=== PATIENT | female | born 1950 | race Caucasian/White ===

== ENCOUNTER 2017-07-31 06:06 | Inpatient (IN) ==
[2017-07-31] MEDS ORDERED: Ringers Solution, Lactated 1,000 ML IVC SCH (06:30)
[2017-07-31] MEDS ORDERED: CeFAZolin Syr 3,000MG/30 ML 3,000 MG/30 ML SYRINGE IVPB ONE (06:30)
[2017-07-31] MEDS ORDERED: Albuterol 2.5 MG/3 ML NEBULIZER IH ONE (06:30)
--- NOTE | 2017-07-31 06:42 | Anesthesia Evaluation PreOp ---
Date of Encounter: 07/31/17 Time of Encounter: 06:40 - Past History Planned Operation: anterior cervical fusion/corpectomy Cardiac History: HTN Pulmonary History: Former smoker (Quit smoking in the '. Denies COPD, however uses routine inhalers for asthma.), Asthma COAL WASHER History: Other (cervical stenosis with pain on lateral rotation of head down left arm. 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.) Other Medical History: Other (Morbid obesity) Anesthesia History: No Prior Anesthetic Complications Alcohol Use: none Drug use: none Medications and Allergies Albuterol Sulfate [Proair HFA] 90 mcg IH Q6HR PRN 11/20/14 [History] Amitriptyline [Elavil] 25 mg PO HS 11/20/14 [History] Atenolol [Tenormin] 25 mg PO HS 11/20/14 [History] Cholecalciferol (Vitamin D3) [Vitamin D] 50,000 unit PO 3XW 11/20/14 [History] Diclofenac Sodium [Voltaren] 75 mg PO BID 11/20/14 [History] Fluticasone/Salmeterol [Advair Hfa 230-21 Mcg Inhaler] 2 puff PO BID 11/20/14 [ History] Gabapentin [Neurontin] 800 mg PO TID 11/20/14 [History] OxyCODONE/APAP 10325 [Percocet 10/325 MG] 1 each PO Q6HR PRN #26 tablet [Rx] Rivaroxaban [Xarelto] 10 mg PO DAILY #21 tablet 11/20/14 [Rx] Sertraline [Zoloft] 100 mg PO BID 11/20/14 [History] 3 Allergy/AdvReac Type Severity Reaction Status Date / Time Erythromycin Base AdvReac Rash Verified 07/27/17 14:47 [From Erythrocin] - Meds/Allergy Pre-op Review Medications Reviewed: Yes Allergies Reviewed: Yes Beta Blockers on Current Med List: Yes (2300 07/30 HR 66) Anesthesia Results - Imaging EKG: report reviewed (sinus rhythm) Additional studies: Cardiac echo- EF 76%, no ischemia Anesthesia Exam - HEENT Pupil (Motor): Pupils equal Mallampati: II Teeth: Missing Oral Opening: Greater than 3 - COAL WASHER LOC: Oriented COAL WASHER Motor: Normal LUE (sl. decrease in director mobile strength, increased pain with flexion of neck, lateral rotation), Deficit Face (slight left sided facial droop ) - Cardiac Rhythm: Regular Murmur: None - Pulmonary Breath Sounds: bilateral Clear Respiratory Effort: Symmetrical Anesthesia Assess/Plan ASA Score: 3 Modified Gloria Scale for Level of Consciousness: Cooperative, oriented, and tranquil Anesthetic Plan: General Monitoring Plan: Standard Monitors Recovery Plan: PACU (Discussed GA, risks. Agreed to proceed. Patient already took gabapentin this morning.)
[2017-07-31] MEDS ORDERED: Acetaminophen IV 1,000 MG/100 ML INFUS..BTL IVPB ONE (06:47)
[2017-07-31] MEDS ORDERED: LIDOCAINE 1% PF 2 ML AMPUL ONE (07:09)
[2017-07-31] MEDS ORDERED: Dexmedetomidine HCl 400 MCG/100 ML MLS IVC ONE (07:27)
[2017-07-31] MEDS ORDERED: Acetaminophen IV 1,000 MG/100 ML INFUS..BTL ONE (07:27)
[2017-07-31] MEDS ORDERED: *HR* Propofol 200 MG/20 ML VIAL IVP ONE (07:29)
[2017-07-31] MEDS ORDERED: Lidocaine -MPF 2% 2 ML VIAL ONE (07:29)
[2017-07-31] MEDS ORDERED: *HR* FentaNYL (PF) 100 MCG/2 ML VIAL ONE (07:29)
[2017-07-31] MEDS ORDERED: *HR* Succinylcholine 200 MG/10 ML VIAL IVP ONE (07:29)
[2017-07-31] MEDS ORDERED: Ondansetron 4 MG/2 ML VIAL ONE (07:29)
[2017-07-31] MEDS ORDERED: Dexamethasone 4 MG/ML VIAL ONE (07:29)
[2017-07-31] MEDS ORDERED: *HR* Remifentanil 1 MG VIAL IVP ONE ×3 (07:31→10:37)
[2017-07-31] MEDS ORDERED: *HR* PHENYLEPHRINE 1,000 MCG/10 ML SYRINGE IVP ONE (07:35)
--- NOTE | 2017-07-31 07:35 | History & Physical Report ---
Date of Encounter: 07/31/17 Time of Encounter: 07:34 24 Hour HP Update - Instructions Instructions: If the History and Physical is less than 30 days old and was completed prior to A.M. admission and or procedure and has NOT been updated on calendar day of procedure please complete this update prior to performing procedure. - Update Patient reports changes in Medical Condition: No Changes in examination, assessment, or condition: No Changes in Medication: No Preop tests/diagnostics Reviewed: Yes Pre-Op MRSA Screen: Negative Surgery Remains Indicated: Yes Consent for Planned Operative Procedure(s) Verified: Yes - Pre-Operative Checklist Preoperative Checklist Indicated: No Prophylactic Antibiotic Ordered: Yes Home Medications Include Beta Oracio: Yes Beta Oracio Taken Today (Day of Surgery): No Beta Oracio Taken Yesterday (Day Prior to Surgery): Yes Is VTE Prophylaxis Indicated?: Yes
[2017-07-31] MEDS ORDERED: Bacitracin 50,000 UNIT, Polymyxin B Sulfate 500,000 UNIT, Sodium Chloride IRRigation 1,... IR ONE (07:45)
[2017-07-31] MEDS ORDERED: Lacri-Lube 3.5 GM TUBE ONE (07:57)
[2017-07-31] MEDS ORDERED: EPHEDrine 50 MG/ML VIAL ONE (08:16)
[2017-07-31] MEDS ORDERED: *HR* Labetalol 100 MG/20 ML MDV IVP PRN (08:51)
[2017-07-31] MEDS ORDERED: Dexamethasone 4 MG/ML VIAL IVP ONE (08:51)
[2017-07-31] MEDS ORDERED: Ondansetron 4 MG/2 ML VIAL IVP ONE (08:51)
[2017-07-31] MEDS ORDERED: *HR* Promethazine 25 MG/ML VIAL IVP PRN (08:51)
[2017-07-31] MEDS ORDERED: *HR* HYDROmorphone (PF) 1 MG/ML SYRINGE IVP PRN (08:51)
[2017-07-31] MEDS ORDERED: *HR* Phenylephrine 10 MG/ML VIAL ONE (09:01)
--- NOTE | 2017-07-31 11:32 | Orthopedic Operative Note ---
Date of procedure: 07/31/17 Pre-op diagnosis: Cervical stenosis, cervical myelopathy Post-op diagnosis: same Operation/Findings: Corpectomy C5, anterior cervical fusion C4-C6: :The patient was brought to the operating room and placed supine on the operating room table. Successful general endotracheal anesthesia intubation was performed. Neurophysiologic monitoring personnel placed leads on the upper and lower extremities as well as the cranium for EMG monitoring purposes. Appropriate baseline potentials were noted by the neurophysiologic monitoring staff. [place] catheter was placed prior to positioning. Compression boots and stockings were placed for deep vein thrombosis prophylaxis. Padding was also placed all bony prominences including the ulnar nerve near the medial epicondyles of the elbows were appropriately padded. Mild traction was placed on the bilateral shoulders and taped into place. Preoperative antibiotics were administered. The area from the mandible bilaterally to the upper thoraces was prepped and draped in the usual sterile fashion. A transverse incision was made at the level of the cricoid cartilage which is approximately 3 cm in length and extended from the midline of the cervical spine laterally towards the sternocleidomastoid muscle on the left. We then performed standard medial approach to the carotid sheath. Sponges were used to tease the fascial medial to the sternocleidomastoid muscle while carefully controlling and palpating the carotid artery. Using careful dissection we were able to get to the level of the anterior vertebral bodies and longus coli muscles. The spinal needle was placed at the appropriate C4-5 level, and intraoperative radiograph was obtained which was a cervical spine lateral radiograph. The needle and radiograph confirmed we were at the correct operative level. We further exposed this level by using Bovie cautery under the medial edge of the longus colli muscles to allow them to be retracted approximately 2 mm laterally on each side. An 11 blade was used to perform anterior discectomy at the appropriate C4-5 level after an initial annulotomy of the anterior longitudinal ligament and annulus was performed. Further disc material was removed with pituitary Rongeurs. Subsequently, Synthes pins were placed at the C4 and C5 vertebral bodies respectively to provide distraction. We then used a Trimline cervical retractor which was placed in both medial and lateral as well as inferior superior direction to allow full visualization of the appropriate C4-5 disc and C4 and C5 vertebral bodies. The Leica microscope was brought to the field and the remainder of the procedure was performed under the guidance of this microscope. Using pituitary rongeurs and small curettes, various micro- instruments, a full discectomy was performed at the appropriate C4-C5 level. The posterior longitudinal ligament was encountered and appeared partially calcified. A portion of this ligament was removed. After complete and thorough discectomy and removal of spondylitic material was performed the endplates of the C4 and C5 vertebral bodies were prepared with a bur until allow bleeding of cancellous bone. We then turned our attention to the C5-6 level where a similar series of procedures was performed including discectomy, removal of spondylitic material, end plate preparation, leaving a fully decompressed C5-6 disc space. At this time the C45 level and the C5-6 level were decompressed, leaving intervening C5 vertebral body. We then performed a corpectomy removing vertebral body all the way to the posterior longitudinal ligament posterior to the vertebral body. We decompressed spondylitic material in calcified posterior longitudinal ligament. After the decompression the air from the inferior border of the C4 vertebral body all the way to the superior border of the C6 vertebral body was decompressed with full visualization of the spinal cord. This space was measured with a caliper and an appropriate size in expandable interbody cage ( [employer], X-Pand) was selected. This cage was packed with autograft bone taken from the corpectomy portion of the procedure supplemented with allograft. The interbody cage was placed under direct visualization and with the aid of fluoroscopy. Once the appropriate placement of the interbody expandable cage was confirmed, we placed a 40 mm anterior cervical plate on the anterior aspect of the C4 and C6 vertebral bodies. The plate was placed in the midline position after drilling four 13 mm self tapping screws and inserting them. They were locked in place using standard Venture plate maneuvers. At this point a lateral radiograph of the cervical spine was obtained and showed satisfactory position of the expandable cage, graft, and plate. The wound was copiously irrigated and bleeders encountered were cauterized using Bovie cautery. Platysma was closed with interrupted 2-0 Vicryl sutures. Running 3-0 Monocryl suture was used for skin closure. Sterile dressing was placed over the neck wound. A cervical collar was placed. The patient was transferred to a hospital bed and extubated. The patient was noted to be fully motor and sensory intact in the recovery room at the end of the procedure. The medications. All sponge instrument and needle counts were correct at the end of the procedure. Anesthesia: GETA Was there an assistant director of financial aid present: No Estimated blood loss (cc): 100 Specimen: none Condition: stable Disposition: PACU
[2017-07-31] MEDS ORDERED: Ipratropium/Albuterol Neb 3 ML ONE (12:54)
--- NOTE | 2017-07-31 13:28 | Anesthesia Evaluation Post Op ---
Date of Encounter: 07/31/17 Time of Encounter: 13:30 - Vital Signs Vital Signs: Vital Signs/O2 Sat/Glucose, Most Current Temp Pulse Resp BP Pulse Ox 07/31/17 13:21 98.6 F 75 18 106/61 91 07/31/17 13:11 77 18 101/62 92 07/31/17 13:01 75 20 99/74 92 07/31/17 12:51 98.8 F 75 20 110/63 90 07/31/17 12:41 82 18 112/66 94 07/31/17 12:31 76 18 103/64 92 07/31/17 12:21 98.7 F 77 18 99/64 93 07/31/17 12:11 75 20 90/64 92 07/31/17 12:01 73 18 112/68 92 07/31/17 11:51 97.5 F L 88 16 139/91 96 - Lungs Lungs: Clear Ascult./Percussion - Airway Airway: Non-obstructed - Cardiovascular Regular Rate - Mental Status Mental Status: Alert & Oriented, Answers Appropriately - Pain Pain Scale: 0 - Nausea Vomiting Nausea Vomiting: Not Present - Hydration Hydration: Ice chips - Discharge PostOp Status: Discharge Patient to home
[2017-07-31] MEDS ORDERED: *HR* HYDROcodone/Acet 5/325 mg TABLET PO PRN (13:38)
[2017-07-31] MEDS ORDERED: Ondansetron 4 MG/2 ML VIAL IVP PRN (13:38)
[2017-07-31] MEDS ORDERED: NON-FORMULARY MEDICATION 1 EACH EACH (Fluticasone Propionate [Flovent Hfa] 1 PUFF) IH PRN (13:38)
[2017-07-31] MEDS ORDERED: tiZANidine 4 MG TABLET PO PRN (13:38)
[2017-07-31] MEDS ORDERED: Naloxone 0.4 MG/ML INJ IVP PRN (13:38)
[2017-07-31] MEDS ORDERED: Acetaminophen 325 MG TABLET PO PRN (13:38)
[2017-07-31] MEDS: Ringers Solution, Lactated 1,000 ML IVC SCH (15:59)
[2017-07-31] MEDS ORDERED: Diclofenac Sodium 75 MG TABLET PO ONE (16:08)
[2017-07-31] MEDS: Budesonide/Formoterol 160/4.5 MDI IH SCH (20:04)
[2017-07-31] MEDS ORDERED: Diclofenac Sodium 75 MG TABLET PO SCH (21:00)
[2017-07-31] MEDS ORDERED: Metoprolol XL (24 HR) Succ 50 MG TAB.ER.24H PO SCH (21:00)
[2017-07-31] MEDS: BuPROPion SR (12 HR) 100 MG TABLET PO SCH (21:33)
[2017-08-01] MEDS: *HR* OxyCODONE Immed Rel 5 MG TABLET PO PRN ×3 (00:29→13:00)
[2017-08-01] MEDS: Ringers Solution, Lactated 1,000 ML IVC SCH (00:30)
[2017-08-01] MEDS: Budesonide/Formoterol 160/4.5 MDI IH SCH (08:06)
--- NOTE | 2017-08-01 08:47 | Orthopedics Progress Note ---
Date of Encounter: 08/01/17 Time of Encounter: 08:46 - Assessment and Plan (1) Cervical stenosis of spine Current Visit: Yes Status: Chronic (2) Cervical myelopathy Current Visit: Yes Status: Chronic (3) Status post cervical spinal fusion Current Visit: Yes Status: Acute Subjective Principal diagnosis: Cervical stenosis, cervical myelopathy Interval history: POD#1 Date of procedure: 07/31/17 Pre-op diagnosis: Cervical stenosis, cervical myelopathy Post-op diagnosis: same Operation/Findings: Corpectomy C5, anterior cervical fusion C4-C6 The patient is without complaints. Afebrile. Vital signs reveal O2 dependence through the night. Incision is clean dry and intact. Neurovascularly intact with regard to bilateral lower extremities. Fires all upper and lower extremity motor groups. Assessment: Stable postoperative. Plan: Reviewed postoperative restrictions and precautions. Patient verbalized understanding. Collar not present - patient calling her daughter to see if she left it at home. Nurse navigator made aware and we will coordinate to make sure patient has one to work with therapy and go home safely. Mobilize with therapy - awaiting evaluation at time of visit Continue analgesics as needed Discharge planning - awaiting therapy recommendations Cspine Radiographs reviewed - demonstrate consistent hardware placement with no acute changes Patient getting labwork given O2 dependence through the night Objective Vital signs: Vital Signs Temp Pulse Resp BP Pulse Ox 08/01/17 06:47 99.0 F 98 15 108/59 94 08/01/17 02:58 98.4 F 78 15 135/84 94 08/01/17 00:20 98.4 F 81 16 136/80 95 07/31/17 20:04 20 92 07/31/17 18:50 98.5 F 81 19 118/68 92 07/31/17 17:22 98.5 F 79 16 116/73 94 07/31/17 15:54 98.7 F 79 14 135/85 94 07/31/17 15:17 98.5 F 76 14 124/81 94 07/31/17 14:15 92 07/31/17 14:10 98.5 F 76 12 108/68 92 07/31/17 13:49 98.2 F 75 12 94/63 93 07/31/17 13:31 72 18 98/62 93 07/31/17 13:21 98.6 F 75 18 106/61 91 06/26/18 13:11 77 18 101/62 92 07/31/17 13:01 75 20 99/74 92 07/31/17 12:51 98.8 F 75 20 110/63 90 07/31/17 12:41 82 18 112/66 94 07/31/17 12:31 76 18 103/64 92 07/31/17 12:21 98.7 F 77 18 99/64 93 07/31/17 12:11 75 20 90/64 92 07/31/17 12:01 73 18 112/68 92 07/31/17 11:51 97.5 F L 88 16 139/91 96 Intake and Output 07/31/17 08/01/17 08/01/17 23:59 07:59 15:59 Intake Total 100 / 100 1780 / 1780 Output Total 600 / 600 450 / 450 Balance -500 / -500 1330 / 1330 Intake: IV Fluids 100 / 100 1000 / 1000 Lactated Ringers 1,000 ML @ 100 1000 / 1000 mls/hr IVC .Q10H [facility] Rx#: [id number] Ancef 2,000 MG In 0.9 % Sodium 100 / 100 Chloride 100 ML @ 200 mls/hr IVPB Q8HR [facility] Rx#:[id number] Oral 780 / 780 Output: Catheter 600 / 600 450 / 450 Other: # Voids 1 - Labs CBC & BMP: 08/01/17 09:10 - VTE Documentation of Mechanical Device: Graduated compression elastic hosiery Consult Discharge Plan - Plan Referrals: India Hernandez, STEERER [Primary Care Provider] -
[2017-08-01] MEDS ORDERED: Topiramate 25 MG TABLET PO SCH (09:00)
[2017-08-01] MEDS: BuPROPion SR (12 HR) 100 MG TABLET PO SCH (09:15)
[2017-08-01 09:22] LABS: Basophils % 0.2 %; Eosinophils % 0.3 %; Hematocrit 39.1 % (35.3-44.9); Hemoglobin 12.7 g/dL (11.5-15.4); Immature Granulocytes % 0.2 % (0-4); Lymphocytes # 1.9 K/mcL (0.6-4.6); Lymphocytes % 21.1 %; Mean Corpuscular HGB Conc 32.5 g/dL (31.6-35.5); Mean Corpuscular Hemoglobin 28.9 pg (28.0-33.3); Mean Corpuscular Volume 89.1 fL (83.0-100.0); Mean Platelet Volume 10.9 fL (9.4-12.4); Monocytes # 0.3 K/mcL (0.0-1.3); Monocytes % 3.2 %; Neutrophils # 6.8 K/mcL (1.6-8.9); Platelet Count 151 K/mcL (140-400); Red Blood Count 4.39 M/mcL (3.82-4.97); Red Cell Distribution Width 13.2 % (11.5-14.5)
[2017-08-01 10:22] VITALS: BP 153/87
[2017-08-01 11:01] LABS: BUN/Creatinine Ratio 16 (6-26); Blood Urea Nitrogen 12 mg/dL (8-23); Calcium 9.1 mg/dL (8.6-10.3); Carbon Dioxide 30 mEq/L (23-29); Chloride 108 mEq/L (98-107); Glucose 119 mg/dL (70-105); Osmolality,Calculated 297 (280-300); Potassium 4.3 mEq/L (3.5-5.1); Sodium 143 mEq/L (136-145); eGFR For African Americans > 60 (> 60); eGFR For Non-African Americans > 60 (> 60)
--- NOTE | 2017-08-01 14:18 | Discharge Summary ---
Date of Encounter: 08/01/17 Time of Encounter: 14:13 - Discharge Diagnosis (1) Cervical stenosis of spine Priority: Primary Status: Chronic (2) Cervical myelopathy Priority: Primary Status: Chronic (3) Status post cervical spinal fusion Priority: Primary Status: Acute - Hospital Course Hospital course: Ms. Anderson is a 66 year old female status post Date of procedure: 07/31/17 Pre-op diagnosis: Cervical stenosis, cervical myelopathy Post-op diagnosis: same Operation/Findings: Corpectomy C5, anterior cervical fusion C4-C6 The patient had an uneventful postoperative course. Progressed from intravenous analgesic needs to oral analgesic needs only. Remained neurovascularly intact and mobilized satisfactorily. All intraoperative and/or postoperative radiographic studies were satisfactory. Patient is discharged with plan for rehabilitation and follow-up in 2 weeks post discharge on analgesic medication and patient's home medications. - Time Spent with Patient Total time spent providing and/or coordinating discharge services: - Discharge Medications Prescriptions: OxyCODONE Immed Rel [Roxicodone 5 MG] 5 mg PO Q6H PRN 7 Days #28 tablet PRN Reason: Severe Pain Home Medications: Albuterol Sulfate [Ventolin Hfa] 2 puff IH Q4-6H PRN 07/31/17 [History] Amitriptyline [Elavil] 25 mg PO HS 07/31/17 [History] Atorvastatin [Lipitor] 10 mg PO HS 07/31/17 [History] BuPROPion SR (12 HR) [Wellbutrin SR] 100 mg PO BID 07/31/17 [History] Fluticasone Propionate [Flovent Hfa] 1 puff IH BID PRN 07/31/17 [History] Fluticasone/Salmeterol [Advair Hfa 230-21 Mcg Inhaler] 1 puff IH BID 07/31/17 [ History] Gabapentin [Neurontin] 800 mg PO TID 07/31/17 [History] Metoprolol XL (24 HR) Succ [Toprol Xl] 50 mg PO HS 07/31/17 [History] Omeprazole [PriLOSEC] 20 mg PO BID 07/31/17 [History] Sertraline [Zoloft] 200 mg PO DAILY 07/31/17 [History] Tizanidine HCl 4 mg PO TID PRN 07/31/17 [History] Topiramate [Topamax] 25 mg PO DAILY 07/31/17 [History] Acetaminophen [Tylenol] 650 mg PO Q6HR PRN tablet 08/01/17 [Rx] OxyCODONE Immed Rel [Roxicodone 5 MG] 5 mg PO Q6H PRN 7 Days #28 tablet [Rx] Allergies/Adverse Reactions: 3 Allergy/AdvReac Type Severity Reaction Status Date / Time Erythromycin Base AdvReac Rash Verified 07/31/17 07:13 [From Erythrocin] Date of admission: 07/31/17 13:43 Primary care physician: India Hernandez CNP Consults: 07/31/17 13:38 Consult to Spine Navigator [CONS] [CONS] Routine 07/31/17 14:09 Consult to Pastoral Services [CONS] Routine Comment: 08/01/17 13:20 Consult to Alligator Hunter [CONS] Routine Reason for SW Consult: discharge planning - VTE Documentation of Mechanical Device: Venous foot pump, device Labs on day of discharge: Labs from last 24 hours 08/01/17 08/01/17 08/01/17 09:57 09:10 09:10 WBC 9.0 D RBC 4.39 Hgb 12.7 D Hct 39.1 MCV 89.1 MCH 28.9 MCHC 32.5 RDW 13.2 Plt Count 151 MPV 10.9 Immature Gran % 0.2 Seg Neutrophils % 75.0 Lymphocytes % 21.1 Monocytes % 3.2 Eosinophils % 0.3 Basophils % 0.2 Neutrophils # 6.8 Lymphocytes # 1.9 Monocytes # 0.3 Eosinophils # 0.0 Basophils # 0.0 Sodium 143 Potassium 4.3 Chloride 108 H Carbon Dioxide 30 H BUN 12 Creatinine 0.75 Est GFR ( Amer) > 60 Est GFR (Non-Af Amer) > 60 BUN/Creatinine Ratio 16 Glucose 119 H Calculated Osmolality 297 Calcium 9.1 Specimen Rejected Hemolyzed - Impressions ITS Impressions Cervical Spine X-Ray 07/31/17 00:00 IMPRESSION: Intraprocedural fluoroscopic spot images as above. See separate procedure report for more information. D/ / Buck Rodriguez MD / Buck Rordiguez MD Interpreting Provider: Buck Rodriguez MD Fluoroscopy 07/31/17 00:00 IMPRESSION: Intraprocedural fluoroscopic spot images as above. See separate procedure report for more information. D/ / Buck Rodriguez MD / Buck Rodriguez MD Interpreting Provider: Buck Rodriguez MD Cervical Spine X-Ray 08/01/17 08:33 IMPRESSION: Status post C5 corpectomy with anterior fusion from C4 through C6. D/ / Trent Rush MD / Trent Rush MD Interpreting Provider: Trent Rush MD - Patient Status Disposition: Home, Self-Care Condition: Good Functional capacity at discharge: uses cane/walker Overall status at discharge: patient is progressing back to baseline - Discharge Instructions Follow Up With: India Hernandez, DIG[employer] SALES PLANNER [Primary Care Provider] - - Diet and Activity Activity: as per physical therapy Diet: advance to your usual diet
== END 2017-08-01 17:02 | disposition home or self-care (01) | DRG 472 ==
LOC: SAMDAY 06:06 → 3NENU 13:43
PROVIDERS: ADMIT Orthopaedic Surgery Orthopaedic Surgery of the Spine; ATTEND Orthopaedic Surgery Orthopaedic Surgery of the Spine
PROC: SPICORP (2017-07-31 07:45)